=== PATIENT | male | born 1960 | race Caucasian/White ===

== ENCOUNTER → 2016-05-06 | Outpatient (CLI) | payer OTHER ==
[~2016-05-06] MED LIST: NO MEDICATIONS; VOLTAREN75 MG PO
--- NOTE | ~2016-05-06 | CR63 ---
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 [place], [place] [address] [id number] O MR#: [id number] Acc #: [id number] NAME: PARISH ELLIOTT : 1960 SEX: M STUDY DATE/TIME: 05/06/2016 19:17 UNIT: [facility] ROOM: STUDY DESCRIPTION: CR Chest 2 View Attending Physician: Natalie Franks A.P.R.N. Ordering Physician: Natalie Franks A.P.R.N. Primary Care Physician: Primary Care Physician No MEDICAL IMAGING REPORT This report is preliminary unless electronic signature is present EXAM PA and lateral chest HISTORY Shortness of air and cough for 4 days. FINDINGS A PA and lateral view of the chest were obtained. The heart size and vascularity are normal. Lateral view is slightly blurred by motion. The bones are unremarkable. IMPRESSION No active disease is visible. Dictated by... Shelton Owens M.D. THIS IS AN ELECTRONICALLY VERIFIED REPORT Shelton Owens M.D. at 05/07/2016 2:05 PM Nilda TD: 05/07/2016 10:18 JOB #: [id number] MEDICAL IMAGING REPORT COPY
== END | disposition home or self-care (01) ==
LOC: CRAD 19:08
DX: R07.9 Chest pain, unspecified (principal); R06.02 Shortness of breath
CPT/HCPCS: 71020